=== PATIENT | female | born 1975 | race Caucasian/White ===

== ENCOUNTER 2016-11-23 06:40 | Day surgery (SDC) | payer OTHER ==
[~2016-11-23] VITALS: Ht 160 cm; Wt 100.3 kg
[~2016-11-23 06:40] MED LIST: ACET-2047 PO; ADV25050 INHALATION; ADV50050 IH; ALBU8.5H3 IH; ATENOLOL PO; COZAAR PO; ERGO500014 PO; FER325 PO; FERROUS SULFATE PO; GUAI118L4 PO; HYDR200T5 PO; IMIT25 PO; LEVO500T10 PO; METF500T4 PO; ORAL CONTRACEPTIVE; PANT40TA3 PO; PRED10TA PO; RTPRO5; SUCR1TAB56 PO; TIOT18CA INHALATION; TOPI25CA PO; TRAMADOL PO; [UNRECOGNIZED DRUG - OTHER]; advair; albuterol
[2016-11-23 08:00] VITALS: Ht 160 cm; Wt 100.3 kg
[2016-11-23] MEDS ORDERED: PROPOFOL 40 ML ONE (08:10)
[2016-11-23] MEDS ORDERED: LOSARTAN (08:13)
[2016-11-23] MEDS ORDERED: PLAQUENIL (08:13)
[2016-11-23 08:48] VITALS: BP 95/54; PULSE 74; RESP 18
[2016-11-23 09:49] VITALS: BP 112/64; PULSE 68; RESP 18
--- NOTE | 2016-11-23 10:31 | GILP ---
DATE OF PROCEDURE: NAME OF PROCEDURE: Colonoscopy up to cecum and terminal ileum. PREOPERATIVE DIAGNOSIS: Chronic diarrhea, rule out inflammatory bowel disease microscopic colitis, colorectal neoplasm. POSTOPERATIVE DIAGNOSES: A 5 mm raised polyp noted in the rectum. This was removed with a cold bio psy forceps. The rest of the colon appeared normal. Terminal ileum appeared normal. Random biopsi es were obtained. DESCRIPTION OF PROCEDURE: After the informed written consent was obtained, the patient was asked to lie on the left lateral side. Intravenous anesthesia was given by anesthesiologist, Dr. Cedeño. When the patient became somnolent, the Olympus video colonoscope was introduced into the rectum. In the rectum just above the anus, there is evidence of a 5 mm, raised polyp was noted. This polyp was re moved with a cold biopsy forceps, the polyp appeared to be benign and no bleeding noted. The rest o f the colon appeared normal up to the cecum. Scope at this time was advanced into the terminal ileu m. Terminal ileum for about 20 cm from the ileocecal valve appeared normal. Biopsies were obtained to rule out inflammatory bowel disease and on the way out, random biopsies were obtained to rule ou t inflammatory bowel disease. The retroflexion was performed, no internal hemorrhoids. No external hemorrhoids. . The proc edure was terminated. PLAN: Recommend wait for the pathology. Dictated By: LULU GOLDEN/WILMA Conf#: [id number] DID#: [id number]
--- NOTE | 2016-11-23 21:59 | GILP ---
DATE OF PROCEDURE: PROCEDURE: Esophagogastroduodenoscopy. PREOPERATIVE DIAGNOSIS: Patient presenting with history of chronic heartburn, chronic epigastric pa in, rule out peptic ulcer disease, rule out gastroesophageal reflux disease. POSTOPERATIVE DIAGNOSES: 1. Diffuse mild gastritis. 2. Three polypoid structures noted on the fold in the antrum. Biopsies were done. 3. A 3 mm raised polyp was noted in the gastric fundus. Biopsy was done. Duodenal biopsies were done to rule out celiac sprue and Giardia. DESCRIPTION OF PROCEDURE: After the informed written consent was obtained, the patient was asked to lie on the left lateral side. Intravenous anesthesia was given by anesthesiologist, Dr. Cedeño. When the patient became somnolent, the Olympus video upper endoscope was introduced into the oropharynx, then into the esophagus. Esophagus showed no esophagitis, no ulcers, no tumor. Scope at this time was advanced into the stomach. Stomach showed evidence of 3 polypoid structures on a fold noted in the prepyloric area. Multiple biopsies were obtained. A 4 mm raised polyp was noted in the gastric fundus. This was removed with cold biopsy forceps. Again, biopsy was done from the antrum, the le sser curvature and the fundus to rule out H. pylori infection. The duodenum appeared normal up to t he end of the third portion. However, biopsies were done from the second part of the duodenum to ru le out celiac sprue and to rule out Giardia. Scope at this time was withdrawn and the procedure was terminated. PLAN: Recommend wait for the pathology report. Dictated By: LULU GOLDEN/WILMA Conf#: [id number] DID#: [id number]
== END 2016-11-23 11:48 | disposition home or self-care (01) ==
LOC: GIL 06:40
PROVIDERS: ATTEND Internal Medicine Gastroenterology
DX: Z12.11 Encounter for screening for malignant neoplasm of colon (principal); K29.50 Unspecified chronic gastritis without bleeding; K62.1 Rectal polyp; I10 Essential (primary) hypertension; E66.01 Morbid (severe) obesity due to excess calories; Z68.39 Body mass index [BMI] 39.0-39.9, adult; J45.909 Unspecified asthma, uncomplicated
CPT/HCPCS: 43239; 45378; 84703; 88305; 88312; Z7610

== ENCOUNTER 2017-01-27 22:36 | Inpatient (IN) | payer OTHER ==
[~2017-01-27] VITALS: Ht 160 cm; Wt 103.9 kg
[~2017-01-27 22:36] MED LIST changes: -ACET-2047 PO; -ADV25050 INHALATION; -ATENOLOL PO; -COZAAR PO; -FERROUS SULFATE PO; -GUAI118L4 PO; -HYDR200T5 PO; -IMIT25 PO; -LEVO500T10 PO; +LOSARTAN; -METF500T4 PO; -ORAL CONTRACEPTIVE; +PLAQUENIL; -PRED10TA PO; -RTPRO5; +RTPRO5 HHN; -TIOT18CA INHALATION; -TRAMADOL PO; -[UNRECOGNIZED DRUG - OTHER]; -advair; +advair INH
[2017-01-27 23:55] VITALS: BP 133/77; PULSE 58; RESP 20
[2017-01-28 00:07] VITALS: Ht 160 cm; Wt 103.9 kg
[2017-01-28] MEDS ORDERED: LOSA50TA6 PO (00:27)
[2017-01-28] MEDS ORDERED: TOPI-25 PO (00:27)
[2017-01-28] MEDS ORDERED: HYDR200T5 PO (00:27)
[2017-01-28] MEDS ORDERED: TIOT18CA INHALATION (00:34)
[2017-01-28] MEDS ORDERED: HYDROCODONE/APAP (5/325) TAB PO PRN (01:30)
[2017-01-28] MEDS ORDERED: morphine 2 MG INJ IV PRN (01:30)
[2017-01-28] MEDS ORDERED: ONDANSETRON 4 MG INJ IV PRN (01:30)
[2017-01-28] MEDS ORDERED: ACETAMINOPHEN 325 MG TAB PO PRN (01:30)
[2017-01-28] MEDS ORDERED: DOCUSATE SODIUM 100 MG CAP PO PRN (01:30)
[2017-01-28] MEDS ORDERED: NACL 0.9% 3 ML SYG IV SCH (01:30)
[2017-01-28] MEDS ORDERED: PROMETHAZINE/CODEINE 5ML CUP PO ONE (01:30)
[2017-01-28] MEDS: ZOLPIDEM 5 MG TAB PO PRN ×2 (02:59→20:56)
[2017-01-28] MEDS: PANTOPRAZOLE (EC) 40 MG TAB PO SCH ×2 (05:43→17:54)
[2017-01-28 06:07] LABS: ADD SCAN DIFF NO
[2017-01-28 06:12] LABS: BASOPHILS % 0.1 % (0.0-2.0); HEMATOCRIT 34.7 % (37.0-47.0); HEMOGLOBIN 11.9 g/dl (12.0-16.0); LYMPHOCYTES % 7.6 % (15.0-51.0); MEAN CORPUSCULAR HEMOGLOBIN 31.5 pg (29.0-33.0); MEAN CORPUSCULAR HGB CONC 34.3 g/dl (32.0-37.0); MEAN CORPUSCULAR VOLUME 91.8 fl (82.0-101.0); MEAN PLATELET VOLUME 9.3 fl (7.4-10.4); MONOCYTE # 0.3 10^3/ul (0.3-0.9); MONOCYTES % 2.5 % (0.0-11.0); NEUTROPHIL # 11.6 10^3/ul (1.6-7.5); PLATELET COUNT 253 10^3/UL (140-415); RED BLOOD COUNT 3.78 10^6/ul (4.20-5.40); RED CELL DISTRIBUTION WIDTH 12.5 % (11.5-14.5)
--- NOTE | 2017-01-28 06:17 | HP ---
DATE OF ADMISSION: 01/27/2017 TIME: 1:00 a.m. CHIEF COMPLAINT: Persistent cough, shortness breath. HISTORY OF PRESENT ILLNESS: The patient is a 41-year-old female with a history of Sjogren syndrome, fibromyalgia, asthma, gastritis, history of MRSA infection of the breast, as well as anemia. The p lori presents with persistent cough. She had several visits to the ED at [facility]. Th e patient was noted to be tachypneic and short of breath and required admission. The patient was tr ansferred to [facility] for insurance purposes. Of note, at [facility], the patie nt had a CTA of the chest which was negative for any pulmonary embolism, negative for any pneumonia. Chest x-ray was also negative. The patient had no signs of infection with a normal WBC count. Th e patient did receive steroids, but did not have any improvement with the cough. The patient does h ave albuterol at home as well as Advair. She states that she ran out of Advair for the past several weeks. The patient does state that she has a chronic cough secondary to her Sjogren syndrome, but this is worse than usual. The patient denies any chest pain, denies any fever or chills. PAST MEDICAL HISTORY: As per HPI. PAST SURGICAL HISTORY: Cholecystectomy, delivery, breast abscess drainage which found MRSA . HOME MEDICATIONS: Please see medication reconciliation. FAMILY HISTORY: Denies any significant history. SOCIAL HISTORY: Denies any alcohol abuse. Denies drug abuse. The patient used to be a smoker but does not smoke anymore. REVIEW OF SYSTEMS: A 12-point review of systems negative except that noted in HPI. PHYSICAL EXAMINATION: VITAL SIGNS: Temperature is 98.3, pulse 58, respiratory rate is 20, blood pressure 133/77, saturati ons 95% on 2 liters. GENERAL: No acute distress, alert and oriented. HEENT: Normocephalic, atraumatic. LUNGS: Clear to auscultation, persistent cough noted. CARDIOVASCULAR: Regular rate and rhythm. ABDOMEN: Nondistended, nontender, soft, obese. EXTREMITIES: No clubbing, cyanosis, or edema. LABORATORIES: At [facility], white count is normal at 7.3, hemoglobin is normal at 12.9, p latelets are normal at 257. BMP is within normal limits except for potassium slightly low at 3.3, A LT is slightly elevated at 100, AST is 72. DIAGNOSTICS: Chest x-ray within normal limits. CT of the chest was within normal limits. ASSESSMENT AND PLAN: 1. Acute respiratory distress secondary to reactive airway disease and this is exacerbated by the p lori's underlying Sjogren syndrome. The patient has no evidence of any infection at this time, he nce there is no indication for antibiotics. There is no significant wheezing on physical exam, henc e there is no indication for steroids. 2. Will treat the patient with ____ codeine and will resume her home Advair. The patient is curren tly saturating well on room air. 3. History of Sjogren's syndrome, no acute issue. 4. History of fibromyalgia. No acute issues. 5. History of anemia. The patient had no evidence of anemia on CBC. 6. History of asthma. The patient states that she ran out of her home Advair. Once again, will pu t the patient back on Advair. 7. History of hypertension. Blood pressure currently stable. 8. Prophylaxis. Prophylaxis will be ambulation. Dictated By: YURIY ANDRADE MD BS/NTS Conf#: [id number] DID#: [id number]
[2017-01-28 06:40] LABS: ALBUMIN 4.2 g/dl (3.3-4.9); ALBUMIN/GLOBULIN RATIO 1.9; BILIRUBIN,INDIRECT 0.2 mg/dl (0-1.1); BILIRUBIN,TOTAL 0.2 mg/dl (0.2-1.3); CALCIUM 9.5 mg/dl (8.4-10.2); CREATININE 0.54 mg/dl (0.44-1.00); MAGNESIUM 2.1 mg/dl (1.7-2.5); PHOSPHORUS 4.5 mg/dl (2.5-4.9); POTASSIUM 3.7 mmol/L (3.5-5.1); TOTAL PROTEIN 6.4 g/dl (6.1-8.1)
[2017-01-28 06:57] LABS: T3 UPTAKE 36.6 % (23.5-40.5)
[2017-01-28 08:01] VITALS: BP 118/66; RESP 18
[2017-01-28] MEDS: SALMETEROL/FLUTICASONE 500/50 INHA INH SCH ×2 (08:52→20:57)
[2017-01-28] MEDS: TIOTROPIUM 18 MCG CAPSULE INHA DEV INH SCH (08:53)
[2017-01-28] MEDS: TOPIRAMATE 100 MG TAB PO SCH ×2 (08:54→20:56)
[2017-01-28] MEDS: LOSARTAN 50 MG TAB PO SCH (08:54)
[2017-01-28] MEDS: SUCRALFATE 1 GM TAB PO SCH ×3 (08:54→20:56)
[2017-01-28] MEDS: HYDROXYCHLOROQUINE 200 MG TAB PO SCH ×2 (08:55→20:56)
[2017-01-28] MEDS: FERROUS SULFATE (EC) 325 MG TAB PO SCH ×2 (08:55→20:56)
[2017-01-28] MEDS ORDERED: SALMETEROL/FLUTICASONE 250/50 INHA INH SCH (09:00)
--- NOTE | 2017-01-28 10:47 | CONS ---
DATE OF ADMISSION: 01/27/2017 DATE OF CONSULTATION: 01/28/2017 TYPE OF CONSULTATION: Pulmonary. REFERRING PHYSICIAN: Franco Carrillo REASON FOR CONSULTATION: Shortness of breath. HISTORY OF PRESENT ILLNESS: This is a 41-year-old woman with a history of Sjogren syndrome, fibromy algia, asthma, gastritis, history of MRSA infection of the breast, who presented to [facility] with persistent cough. She was noted to be quite tachypneic and short of breath. She was treat ed with bronchodilators and steroid therapy. A CT angio was done which was negative for pulmonary e mbolism or pneumonia. The patient subsequently transferred to [facility] due to i nsurance reasons. Currently, she is sitting in bed. According to her, she still has dry cough, non productive. This is not associated with fever, chest pain, any purulent sputum, pleurisy. The benjamín ent has been started on bronchodilator therapy and inhaled steroids. REVIEW OF SYSTEMS: CONSTITUTIONAL: Denies fever, chills, night sweats. RESPIRATORY: As mentioned above. CARDIOVASCULAR: Denies anginal palpitation. GASTROINTESTINAL: Denies nausea, vomiting, diarrhea, abdominal pain. GENITOURINARY: Denies dysuria or hematuria. NEUROLOGICAL: Denies dizziness, loss of consciousness. All other systems were reviewed also and fo und to be negative. PAST MEDICAL HISTORY: As mentioned above. PAST SURGICAL HISTORY: Cholecystectomy, section, breast abscess drainage. ALLERGIES: DENIES. SOCIAL HABITS: Nonsmoker. Denies alcohol abuse. Denies any drug abuse. FAMILY HISTORY: Noncontributory. PHYSICAL EXAMINATION: VITAL SIGNS: Blood pressure 118/66, pulse 87, respiration 18, temperature 97.7. She is on 2 liters nasal cannula, saturating 94%. HEENT: Pupils are equal and react to light. NECK: Supple, no JVD noted, no cervical lymphadenopathy noted, no carotid bruits heard. LUNGS: Fair breath sounds bilaterally. Forced expiratory wheezes are present. CARDIOVASCULAR: S1 and S2 normal. ABDOMEN: Soft, nontender. No organomegaly or masses noted. EXTREMITIES: No clubbing, cyanosis, or edema noted. NEUROLOGIC: No focal deficits. LABORATORIES: Sodium 140, potassium 3.7, chloride 103, CO2 26, BUN 17, creatinine 0.54, glucose 123 . WBC 13, hemoglobin 11.9, hematocrit 34.7, platelets 253. IMPRESSION: 1. Shortness of breath, most likely due to reactive airway disease. 2. History of Sjogren's syndrome. 3. No evidence of pneumonia or infection. 4. History of fibromyalgia. 5. History of anemia. 6. History of hypertension. 7. Obesity. PLAN: 1. Continue bronchodilators. 2. Oxygen p.r.n. 3. Inhaled steroids. 4. No need for antibiotics at this time. 5. Ambulate the patient. 6. The patient has already been given prednisone. Will observe without further steroids. Dictated By: JESUS GONZALEZ MD, MA/WILMA Conf#: [id number] DID#: [id number]
--- NOTE | 2017-01-28 11:39 | PN ---
Date/Time of Note Date/Time of Note DATE: 01/28/17 TIME: 11:37 Assessment/Plan VTE Prophylaxis VTE Prophylaxis Intervention: SCD's Lines/Catheters IV [facility] [place] Assessment/Plan Assessment/Plan 1. Acute respiratory distress secondary to reactive airway disease and this is exacerbated by the patient's underlying Sjogren syndrome. 2. Possibel acute viral bronchitis - symptomatic treatment, Advair, Cough syrup 3. History of Sjogren's syndrome, no acute issue. 4. History of fibromyalgia. No acute issues. 5. History of anemia. The patient had no evidence of anemia on CBC. 6. History of asthma. The patient states that she ran out of her home Advair. Once again, will put the patient back on Advair. 7. History of hypertension. Blood pressure currently stable. 8. Prophylaxis. Prophylaxis will be ambulation. ibuprofen prn headache, Cough syrup for cough pt does not feel like going home due to her persistent SOB Subjective 24 Hr Interval Summary Free Text/Dictation still c/o SOB,cough Exam/Review of Systems Vital Signs Vitals Vital Signs Date Time Temp Pulse Resp B/P Pulse Ox O2 Delivery O2 Flow Rate FiO2 01/28/17 08:01 97.7 87 18 118/66 94 01/28/17 00:30 2.0 01/27/17 23:55 Nasal Cannula Intake and Output 01/27/17 01/27/17 01/28/17 15:00 23:00 07:00 Intake Total 200 ml Balance 200 ml Exam GENERAL: No acute distress, alert and oriented. HEENT: Normocephalic, atraumatic. LUNGS: Clear to auscultation, persistent cough noted., minimal exp wheezing CARDIOVASCULAR: Regular rate and rhythm. ABDOMEN: Nondistended, nontender, soft, obese. EXTREMITIES: No clubbing, cyanosis, or edema. Results Result Diagram: 01/28/17 0530 01/28/17 0530 Results 24 hrs Laboratory Tests Test 01/28/17 05:30 White Blood Count 13.0 H Red Blood Count 3.78 L Hemoglobin 11.9 L Hematocrit 34.7 L Mean Corpuscular Volume 91.8 Mean Corpuscular Hemoglobin 31.5 Mean Corpuscular Hemoglobin Concent 34.3 Red Cell Distribution Width 12.5 Platelet Count 253 Mean Platelet Volume 9.3 # Neutrophils % 89.0 H Lymphocytes % 7.6 L Monocytes % 2.5 Eosinophils % 0.0 Basophils % 0.1 Nucleated Red Blood Cells % 0.0 Neutrophils # 11.6 H Lymphocytes # 1.0 Monocytes # 0.3 Eosinophils # 0.0 Basophils # 0.0 Nucleated Red Blood Cells # 0.0 Sodium Level 140 Potassium Level 3.7 Chloride Level 103 Carbon Dioxide Level 26 Anion Gap 15 Blood Urea Nitrogen 17 Creatinine 0.54 Glucose Level 123 Hemoglobin A1c 5.2 Calcium Level 9.5 Phosphorus Level 4.5 Magnesium Level 2.1 Total Bilirubin 0.2 Direct Bilirubin 0.00 Indirect Bilirubin 0.2 Aspartate Amino Transf (AST/SGOT) 39 Alanine Aminotransferase (ALT/SGPT) 91 H Alkaline Phosphatase 62 Total Protein 6.4 Albumin 4.2 Globulin 2.20 Albumin/Globulin Ratio 1.90 Free Thyroxine Index 2.09 Thyroxine (T4) 5.7 Triiodothyronine (T3) Uptake 36.6 Medications Medications Current Medications Ondansetron HCl (Zofran Inj) 4 mg Q6H PRN IV NAUSEA AND/OR VOMITING; Start at 01:30 Acetaminophen (Tylenol Tab) 650 mg Q6H PRN PO PAIN LEVEL 1-3 OR FEVER; Start at 01:30 Acetaminophen/ Hydrocodone Bitart ([place] (5/325)) 1 tab Q6H PRN PO MODERATE PAIN LEVEL 4-6; Start 01/28/17 at 01:30 Morphine Sulfate (morphine) 2 mg Q4H PRN IV SEVERE PAIN LEVEL 7-10; Start 01/28 at 01:30 Docusate Sodium (Colace) 100 mg Q12H PRN PO CONSTIPATION; Start 01/28/17 at 01: 30 Zolpidem Tartrate (Ambien) 5 mg QHS PRN PO SLEEP Last administered on 02:59; Admin Dose 5 MG; Start 01/28/17 at 01:30 Promethazine HCl/ Codeine (Phenergan/ Codeine) 5 ml Q4H PRN PO COUGH; Start at 01:30 Tiotropium [place] (Spiriva) 1 inh DAILY INH Last administered on 01/28/17 08: 53; Admin Dose 1 INH; Start 01/28/17 at 09:00 Ferrous Sulfate (Ferrous Sulfate (Ec)) 325 mg BID PO Last administered on 08:55; Admin Dose 325 MG; Start 01/28/17 at 09:00 Hydroxychloroquine Sulfate (Plaquenil) 100 mg BID PO Last administered on 08:55; Admin Dose 100 MG; Start 01/28/17 at 09:00 Losartan Potassium (Cozaar) 50 mg DAILY PO Last administered on 01/28/17 08:54 ; Admin Dose 50 MG; Start 01/28/17 at 09:00 Pantoprazole (Protonix Tab) 40 mg BID@18 PO Last administered on 01/28/17 05:43; Admin Dose 40 MG; Start 01/28/17 at 06:00 Salmeterol Xinafoate/ Fluticasone (Advair 500/50 Diskus) 1 inh BID INH Last administered on 01/28/17 08:52; Admin Dose 1 INH; Start 01/28/17 at 09:00 Sucralfate (Carafate) 1 gm TID PO Last administered on 01/28/17 08:54; Admin Dose 1 GM; Start 01/28/17 at 09:00 Topiramate (Topamax) 100 mg BID PO Last administered on 01/28/17 08:54; Admin Dose 100 MG; Start 01/28/17 at 09:00 LYDIA MURRAY MD Jan 28, 2017 11:39
[2017-01-28] MEDS ORDERED: SUMATRIPTAN 50 MG TAB PO SCH (12:00)
[2017-01-28] MEDS: ALBUTEROL/IPRATROPIUM (NEB) 3 ML AMP HHN PRN ×2 (12:01→19:36)
[2017-01-28] MEDS: PROMETHAZINE/CODEINE 5ML CUP PO PRN (12:55)
[2017-01-28 20:00] VITALS: BP 110/61; PULSE 98; RESP 20
[2017-01-29] MEDS: PANTOPRAZOLE (EC) 40 MG TAB PO SCH (05:39)
[2017-01-29 05:58] LABS: ADD SCAN DIFF NO
[2017-01-29 06:02] LABS: BASOPHILS % 0.3 % (0.0-2.0); EOSINOPHILS # 0.1 10^3/ul (0.0-0.5); EOSINOPHILS % 1.1 % (0.0-7.0); HEMATOCRIT 34.4 % (37.0-47.0); HEMOGLOBIN 11.7 g/dl (12.0-16.0); LYMPHOCYTES # 2.1 10^3/ul (0.8-2.9); LYMPHOCYTES % 28.8 % (15.0-51.0); MONOCYTE # 0.5 10^3/ul (0.3-0.9); MONOCYTES % 6.1 % (0.0-11.0); NEUTROPHIL # 4.6 10^3/ul (1.6-7.5); NEUTROPHILS % 62.9 % (39.0-77.0); PLATELET COUNT 207 10^3/UL (140-415); RED BLOOD COUNT 3.66 10^6/ul (4.20-5.40); RED CELL DISTRIBUTION WIDTH 12.7 % (11.5-14.5); WHITE BLOOD COUNT 7.3 10^3/ul (4.8-10.8)
[2017-01-29 06:31] LABS: PROTIME 13.2 Sec (12.2-14.2)
[2017-01-29 06:32] LABS: PARTIAL THROMBOPLASTIN TIME 26.9 Sec (25.0-35.0)
[2017-01-29 06:44] LABS: CALCIUM 8.4 mg/dl (8.4-10.2); CREATININE 0.7 mg/dl (0.44-1.00); POTASSIUM 3.2 mmol/L (3.5-5.1)
[2017-01-29 07:27] VITALS: BP 113/68; RESP 18
[2017-01-29] MEDS: TIOTROPIUM 18 MCG CAPSULE INHA DEV INH SCH (09:10)
[2017-01-29] MEDS: SALMETEROL/FLUTICASONE 500/50 INHA INH SCH (09:10)
[2017-01-29] MEDS: SUCRALFATE 1 GM TAB PO SCH ×2 (09:11→12:16)
[2017-01-29] MEDS: FERROUS SULFATE (EC) 325 MG TAB PO SCH (09:11)
[2017-01-29] MEDS: HYDROXYCHLOROQUINE 200 MG TAB PO SCH (09:11)
[2017-01-29] MEDS: TOPIRAMATE 100 MG TAB PO SCH (09:12)
[2017-01-29] MEDS: LOSARTAN 50 MG TAB PO SCH (09:13)
[2017-01-29] MEDS: ALBUTEROL/IPRATROPIUM (NEB) 3 ML AMP HHN PRN (09:35)
[2017-01-29] MEDS ORDERED: POTASSIUM CHLORIDE (SR) 20 MEQ TAB PO STA (09:58)
--- NOTE | 2017-01-29 10:41 | PDOCDIS ---
Discharge Instructions DIAGNOSIS Discharge Diagnosis Reactive airway disease. CONDITION Patient Condition: Stable HOME CARE INSTRUCTIONS: Diet Instructions: Low Fat /Cholesterol OTHER ORDERS: Other Orders: 1. Take medications as per prescription. 2. Low-sodium, low-cholesterol diet. 3. Resume activities as tolerated. 4. Follow-up with your primary care physician at the earliest. 5. Follow-up with your salvage laborer as scheduled. DELMAR MICHAUD NP Jan 29, 2017 10:40
[2017-01-29] MEDS ORDERED: Promethazine/Codeine Syp PO (10:42)
[2017-01-29] MEDS ORDERED: SUMA50TA3 PO (10:57)
[2017-01-29] MEDS: PROMETHAZINE/CODEINE 5ML CUP PO PRN (11:25)
--- NOTE | 2017-01-29 11:45 | DS ---
DATE OF ADMISSION: 01/27/2017 DATE OF DISCHARGE: 01/29/2017 FINAL DIAGNOSES: 1. Acute hypoxic respiratory failure secondary to reactive airway disease. 2. Sjogren's syndrome. 3. Fibromyalgia. 4. Normocytic normochromic anemia with history of iron deficiency. 5. Asthma with no evidence of severe exacerbation. 6. Essential hypertension. 7. Morbid obesity. 8. Migraine. CONSULTATIONS: Dr. Dinora Eagle, pulmonology. HOSPITAL COURSE: This is a 41-year-old female with past medical history of Sjogren syndrome, fibromyalgia, asthma, gastritis as well as anemia, who presented to the emergency room with chief complaint of persistent nonproductive cough as well as dyspnea. The patient verbalized that she had multiple ER visits at [facility] because of the same complaints. The patient underwent a CT angiogram of the chest that was negative for any pulmonary embolism. The patient had no signs of any infection with normal WBC count. The patient takes Advair as well as albuterol at home. As per report, the patient ran out of her Advair for the past several weeks. The patient denied any chest pain, fevers, or chills. The patient was admitted to inpatient setting for further evaluation. A pulmonology consult was obtained. The patient was maintained on inhaled bronchodilators around the clock and on a p.r.n. basis. The patient was seen by pulmonology who recommended the current management. Pulmonology did not recommend any steroid taper. The patient got a single dose of prednisone in the ER. There was no indication for any antibiotic therapy since the patient had no evidence of any infection. The head nurse also agreed with the same. The patient was started on a cough suppressant for her underlying cough. The patient has underlying Sjogren's syndrome. She was maintained on medications for the same. The patient has underlying essential hypertension. The patient was maintained on antihypertensives. The patient has underlying migraine headache. The patient was maintained on Topamax. The patient also got a single dose of Imitrex during this visit because of headache. The patient has underlying normocytic normochromic anemia. The patient's H and H remained stable. The patient was maintained on iron supplements. The patient has history of asthma. The patient had no evidence of any severe exacerbation that necessitated steroid use. The patient has underlying fibromyalgia. There was no evidence of any active issue for underlying fibromyalgia. The patient had a stable hospital course. The patient is stable enough to be discharged home provided the patient follows up with her primary care physician at the earliest and also with her accounts executive at the earliest. DISCHARGE DISPOSITION AND PLAN: The patient will be discharged home today. The patient was instructed to take medications as per prescription. The patient was instructed to follow a low sodium, low cholesterol diet. The patient was instructed to resume activities as tolerated. She was instructed to follow up with her primary care physician at the earliest. The patient was instructed to follow up with her accounts executive as scheduled but to make her appointment as early as possible. The patient verbalized understanding of her discharge instructions. CONDITION AT DISCHARGE: Stable. DISCHARGE MEDICATIONS: 1. Phenergan with codeine 5 mL p.o. q. 4 hours p.r.n. cough. 2. Proventil nebulization q. 4 hours p.r.n. shortness of breath. 3. Vitamin D2 50,000 units p.o. every 2 weeks. 4. Ferrous sulfate 325 mg p.o. b.i.d. 5. Hydroxychloroquine 100 mg p.o. b.i.d. 6. Losartan 50 mg p.o. daily. 7. Protonix 40 mg p.o. b.i.d. 8. Advair Diskus 500/50, one inhalation b.i.d. 9. Carafate 1 g p.o. t.i.d. 10. Spiriva 18 mcg capsule, 1 capsule inhalation daily. 11. Topiramate 100 mg p.o. b.i.d. 12. Sumatriptan 50 mg p.o. b.i.d. p.r.n. migraine headache. PERTINENT LABORATORY AND DIAGNOSTIC DATA: 1. Latest CBC: WBC 7.3, hemoglobin 11.7, hematocrit 34.7, platelet count 207. 2. Latest BMP: Sodium 140, potassium 3.2, chloride 104, carbon dioxide 26, anion gap 12, BUN 16, creatinine 0.77, glucose 90, calcium 8.4, magnesium 2.0. 3. Hemoglobin A1c 5.2. At this time, I would like to thank Dr. Eagle for seeing the patient and providing clinical recommendations. The case and management of this patient was fully discussed with Dr. Romero. Approximately 40 minutes was spent on coordinating the discharge on this patient. DELMAR ROMERO MD, AM/WILMA Conf#: [id number] [facility]#: [id number] MTDD
[2017-01-29] MEDS ORDERED: SUMATRIPTAN 50 MG TAB PO ONE (12:15)
--- NOTE | 2017-01-29 15:30 | PN ---
DATE: 01/29/2017 SUBJECTIVE: Chart reviewed. The patient on room air saturating 98% and feeling better. PHYSICAL EXAMINATION: VITAL SIGNS: Blood pressure 113/68, pulse 78, respiration 18, temperature 98.2. HEENT: Pupils are equal and reactive to light. NECK: Supple, no JVD noted, no cervical adenopathy, no carotid bruits heard. LUNGS: Fair breath sounds bilaterally. CARDIOVASCULAR: S1, S2 normal. ABDOMEN: Soft, nontender, normal. Masses noted. EXTREMITIES: No clubbing, cyanosis, or edema. NEUROLOGICAL: Awake and alert. LABORATORY DATA: WBC 7.3, hemoglobin 11.7, hematocrit 34.4, platelets 207. Sodium 140, potassium 3 .2, chloride 104, CO2 27, BUN 16, creatinine 0.7, glucose 90. IMPRESSION: 1. Shortness of breath and bronchospasm, resolved. 2. History of Sjogren's syndrome. 3. No evidence of pneumonia. 4. Mild hypokalemia. 5. History of fibromyalgia. 6. History of anemia. 7. History of hypertension. 8. Obesity. PLAN: 1. Discharge plans noted. 2. Potassium supplementation. 3. Bronchodilators. 4. Inhaled steroids at home. Dictated By: JESUS GONZALEZ MD, MA/WILMA Conf#: [id number] DID#: [id number]
== END 2017-01-29 13:35 | disposition home or self-care (01) | DRG 189 ==
LOC: MS2 23:38
PROVIDERS: ADMIT Internal Medicine; ATTEND Internal Medicine
DX: J96.01 Acute respiratory failure with hypoxia (principal); Z68.41 Body mass index [BMI] 40.0-44.9, adult; J45.901 Unspecified asthma with (acute) exacerbation; M35.00 Sjogren syndrome, unspecified; E66.01 Morbid (severe) obesity due to excess calories; I10 Essential (primary) hypertension; M79.7 Fibromyalgia; D64.9 Anemia, unspecified; G43.909 Migraine, unspecified, not intractable, without status migrainosus; E87.6 Hypokalemia; Z87.891 Personal history of nicotine dependence; Z90.49 Acquired absence of other specified parts of digestive tract
CPT/HCPCS: 80048; 80053; 83036; 83735; 84100; 84436; 84479; 85025; 85610; 85730; 94640; 94664